=== PATIENT | female | born 2000 | race Caucasian/White ===

== ENCOUNTER 2020-05-23 13:50 | Outpatient (CLI) | payer OTHER ==
[2020-05-23] MEDS ORDERED: CYSTO CONRAY II 250 ML VIAL UR ONE (14:56)
== END 2020-05-23 23:59 | disposition home or self-care (01) ==
LOC: RAD 13:50
PROVIDERS: ATTEND Physician Assistant Surgical
DX: N39.0 Urinary tract infection, site not specified (principal); R39.198 Other difficulties with micturition; Z97.5 Presence of (intrauterine) contraceptive device
CPT/HCPCS: 51600; 74455; Q9958